=== PATIENT | female | born 1995 | race African-American/Black ===

== ENCOUNTER 2019-08-21 15:20 | Inpatient (IN) ==
[2019-08-21] MEDS ORDERED: MEPERIDINE 50 MG/1 ML VIAL IV PRN (15:30)
[2019-08-21] MEDS ORDERED: BUTORPHANOL 2 MG/ML VIAL IV PRN (15:30)
[2019-08-21] MEDS ORDERED: ONDANSETRON 4 MG/2 ML VIAL IV PRN (15:30)
[2019-08-21] MEDS ORDERED: DINOPROSTONE VAG GEL 10 MG SYRINGE VAG ONE (15:32)
[2019-08-21 15:55] LABS: Basophils % 0.2 % (0.0-0.8); Hematocrit 34.6 VOL% (35.7-47.0); Hemoglobin 11.2 GM/DL (12.0-16.0); Immature Granulocytes % 0.6 %; Immature Granulocytes Absolute 0.06 #; Lymphocytes # 1.7 10*3/uL (1.4-4.0); Lymphocytes % 16.8 % (21.3-54.2); Mean Corpuscular HGB Conc 32.4 GM/DL (32-36); Mean Corpuscular Volume 88.3 FL (87-102); Mean Platelet Volume 12.6 FL (9.6-12.0); Monocytes % 5.3 % (1.7-12.7); Neutrophils % 77.1 % (38.7-73.9); Platelet Count 173 T/CUMM (130-400); Red Blood Count 3.92 MC/CUMM (3.8-5.5); White Blood Count 9.9 T/CUMM (4-12)
[2019-08-21 16:19] LABS: Albumin 2.7 G/DL (3.4-5.0); Bilirubin,Total 0.4 MG/DL (0.2-1.0); Calcium 8.7 MG/DL (8.5-10.1); Osmolality,Calculated 280.3 MOS/KG (273-304); Total Protein 6.1 G/DL (6.4-8.3)
[2019-08-21] MEDS: LACTATED RINGERS 1,000 ML IV SCH (23:06)
[2019-08-22] MEDS ORDERED: OXYTOCIN/LR 20 UNIT/1,000 ML BAG IV SCH (02:00)
[2019-08-22] MEDS ORDERED: DINOPROSTONE VAG GEL 10 MG SYRINGE VAG ONE ×4 (08:31→16:06)
[2019-08-22] MEDS ORDERED: ACETAMINOPHEN 500 MG TABLET PO ONE (11:46)
[2019-08-23] MEDS ORDERED: OXYTOCIN/LR 20 UNIT/1,000 ML BAG IV SCH (02:00)
[2019-08-23] MEDS: LACTATED RINGERS 1,000 ML IV SCH (03:08)
[2019-08-23] MEDS ORDERED: OXYTOCIN 10 UNIT/ML VIAL IM ONE (06:05)
[2019-08-23] MEDS ORDERED: CITRIC ACID/SODIUM CITRATE 30 ML UDCUP PO ONE (06:05)
[2019-08-23] MEDS ORDERED: OXYTOCIN/LR 30 UNIT/1,000 ML BAG IV ONE (06:05)
[2019-08-23] MEDS ORDERED: FAMOTIDINE 20 MG/2 ML VIAL IV ONE (06:05)
[2019-08-23] MEDS ORDERED: miSOPROStoL 200 MCG TABLET ONE (08:00)
[2019-08-23] MEDS ORDERED: ceFAZolin 3,000 MG in SYRINGE 1 EACH IV ONE (08:00)
[2019-08-23] MEDS ORDERED: METHYLERGONOVINE 0.2 MG/1 ML AMP ONE (08:01)
[2019-08-23] MEDS ORDERED: CARBOPROST TROMETHAMINE 250 MCG/ML AMP IM ONE (08:01)
[2019-08-23] MEDS ORDERED: PHENYLEPHRINE 1 MG/10 ML SYRINGE IV ONE (08:27)
[2019-08-23] MEDS ORDERED: BUPIVACAINE 0.25% 50 ML VIAL ONE (08:27)
[2019-08-23] MEDS ORDERED: MORPHINE 10 MG/10 ML VIAL ONE (08:28)
[2019-08-23] MEDS ORDERED: DEXAMETHASONE 4 MG/1 ML VIAL ONE (08:28)
[2019-08-23] MEDS ORDERED: EPINEPHrine 1 MG/ML VIAL ONE (08:28)
[2019-08-23] MEDS ORDERED: BUPIVACAINE SPINAL 0.75% 2 ML AMP SPINAL ONE (08:28)
[2019-08-23 10:57] LABS: Apearance,Urine Slightly Hazy (Clear); Bilirubin,Urine Negative (Negative); Blood, Urine Moderate mg/dL (Negative); Glucose,Urine (UA) Negative (Negative); Ketones,Urine Negative (Negative); Mucus,Urine Occasional /LPF (Occasional); Nitrite,Urine Negative (Negative); Protein,Urine Negative; RBC,Urine 12 /HPF (0-4); Squamous Epithelial Cell,Urine Few /HPF (0-10); Urine Color Yellow (Yellow); Urine Urobilinogen < 2.0 EU/DL (0.2-1.0); WBC,Urine 9 /HPF (0-6)
[2019-08-23 11:36] LABS: Cord Arterial Blood HCO3 26.8 MMOL/L
[2019-08-23 11:39] LABS: Cord Venous Blood HCO3 22.2 MMOL/L; Cord Venous Blood PCO2 42.8 MMHG; Cord Venous Blood PO2 30.7
[2019-08-23] MEDS ORDERED: HYDROmorphone 2 MG/1 ML VIAL IV PRN (11:47)
[2019-08-23] MEDS ORDERED: ACETAMINOPHEN 500 MG TABLET PO SCH (13:00)
[2019-08-23] MEDS ORDERED: KETOROLAC 30 MG/1 ML VIAL IV SCH (13:00)
[2019-08-23] MEDS ORDERED: OXYTOCIN/LR 20 UNIT/1,000 ML BAG IV ONE (14:29)
[2019-08-23] MEDS ORDERED: ACETAMINOPHEN 325 MG TABLET PO PRN (14:29)
[2019-08-23] MEDS ORDERED: SIMETHICONE CHEW 80 MG TABLET PO PRN (14:29)
[2019-08-23] MEDS ORDERED: RHO(D) IMMUNE GLOBULIN 300 MCG SYRINGE IM ONE (14:29)
[2019-08-23] MEDS ORDERED: ONDANSETRON 4 MG/2 ML VIAL IV PRN (14:29)
[2019-08-23] MEDS ORDERED: ceFAZolin 1,000 MG in SYRINGE 1 EACH IV SCH ×2 (14:30→19:00)
[2019-08-23] MEDS ORDERED: LACTATED RINGERS 1,000 ML IV SCH (14:30)
[2019-08-23] MEDS ORDERED: diphenhydrAMINE 50 MG/1 ML VIAL IV PRN (15:00)
[2019-08-23] MEDS: ACETAMINOPHEN 500 MG TABLET PO SCH (18:28)
[2019-08-23] MEDS: ceFAZolin 1,000 MG in SYRINGE 1 EACH IV SCH (18:32)
[2019-08-23] MEDS: KETOROLAC 30 MG/1 ML VIAL IV SCH (18:32)
[2019-08-23] MEDS ORDERED: ACETAMINOPHEN 500 MG TABLET PO PRN (18:50)
[2019-08-23 19:14] LABS: Basophils % 0.3 % (0.0-0.8); Hemoglobin 9.3 GM/DL (12.0-16.0); Immature Granulocytes % 0.6 %; Immature Granulocytes Absolute 0.07 #; Lymphocytes # 1.2 10*3/uL (1.4-4.0); Lymphocytes % 9.9 % (21.3-54.2); Mean Corpuscular Volume 90.9 FL (87-102); Mean Platelet Volume 12.9 FL (9.6-12.0); Monocytes % 6.9 % (1.7-12.7); Neutrophils % 82.3 % (38.7-73.9); Platelet Count 140 T/CUMM (130-400); Red Cell Distribution Width 13.1 % (9.3-17.3); White Blood Count 11.7 T/CUMM (4-12)
[2019-08-23] MEDS: DOCUSATE SODIUM 100 MG CAPSULE PO SCH (22:19)
[2019-08-24] MEDS: KETOROLAC 30 MG/1 ML VIAL IV SCH ×2 (00:42→06:59)
[2019-08-24] MEDS: ACETAMINOPHEN 500 MG TABLET PO SCH ×3 (00:42→12:50)
[2019-08-24] MEDS: ceFAZolin 1,000 MG in SYRINGE 1 EACH IV SCH (03:18)
[2019-08-24 06:04] LABS: Basophils % 0.3 % (0.0-0.8); Eosinophils % 0.3 % (0.00-10.9); Hemoglobin 8.9 GM/DL (12.0-16.0); Immature Granulocytes % 0.6 %; Immature Granulocytes Absolute 0.07 #; Lymphocytes % 16.7 % (21.3-54.2); Mean Corpuscular HGB Conc 31.8 GM/DL (32-36); Mean Corpuscular Volume 91.5 FL (87-102); Mean Platelet Volume 12.6 FL (9.6-12.0); Monocytes % 9.9 % (1.7-12.7); Neutrophils % 72.2 % (38.7-73.9); Platelet Count 148 T/CUMM (130-400); Red Blood Count 3.06 MC/CUMM (3.8-5.5); Red Cell Distribution Width 13.2 % (9.3-17.3); White Blood Count 11.8 T/CUMM (4-12)
[2019-08-24] MEDS: DOCUSATE SODIUM 100 MG CAPSULE PO SCH ×2 (09:43→20:59)
[2019-08-24] MEDS: FERROUS SULFATE 325 MG TABLET PO SCH ×2 (09:44→20:59)
[2019-08-24] MEDS: MAGNESIUM HYDROXIDE SUSP 30 ML UDCUP PO PRN ×2 (09:44→21:03)
[2019-08-24] MEDS: MULTIVITAMIN (PRENATAL) TABLET PO SCH (09:44)
[2019-08-24] MEDS ORDERED: oxyCODONE/ACETAMINOPHEN 5-325 MG TABLET ONE (14:29)
[2019-08-24] MEDS: oxyCODONE/ACETAMINOPHEN 5-325 MG TABLET PO PRN ×2 (14:50→20:59)
[2019-08-24] MEDS ORDERED: METOCLOPRAMIDE 10 MG TABLET PO PRN (15:23)
[2019-08-25] MEDS: IBUPROFEN 800 MG TABLET PO PRN ×2 (01:16→13:46)
[2019-08-25] MEDS: oxyCODONE/ACETAMINOPHEN 5-325 MG TABLET PO PRN ×2 (04:20→23:45)
[2019-08-25] MEDS ORDERED: FUROSEMIDE 40 MG TABLET PO ONE ×3 (08:05→20:00)
[2019-08-25] MEDS: MULTIVITAMIN (PRENATAL) TABLET PO SCH (09:04)
[2019-08-25] MEDS: DOCUSATE SODIUM 100 MG CAPSULE PO SCH ×2 (09:04→20:35)
[2019-08-25] MEDS: FERROUS SULFATE 325 MG TABLET PO SCH ×2 (09:04→20:34)
[2019-08-25] MEDS: MAGNESIUM HYDROXIDE SUSP 30 ML UDCUP PO PRN (20:46)
[2019-08-26] MEDS: IBUPROFEN 800 MG TABLET PO PRN (01:03)
[2019-08-26] MEDS: MULTIVITAMIN (PRENATAL) TABLET PO SCH (09:54)
[2019-08-26] MEDS: MAGNESIUM HYDROXIDE SUSP 30 ML UDCUP PO PRN (09:55)
[2019-08-26] MEDS: FERROUS SULFATE 325 MG TABLET PO SCH (09:55)
[2019-08-26] MEDS: DOCUSATE SODIUM 100 MG CAPSULE PO SCH (09:56)
[2019-08-26] MEDS ORDERED: MAGNESIUM CITRATE 300 ML BOTTLE PO ONE (10:49)
[2019-08-26 20:51] VITALS: BP 136/74
== END 2019-08-26 18:50 | disposition home or self-care (01) | DRG 788 ==
LOC: N.LDOUT 15:20 → N.LD 15:22 → N.OB 08-23 14:34
PROVIDERS: ADMIT Obstetrics & Gynecology; ATTEND Obstetrics & Gynecology
PROC: LDCSECT (ICD-10-PCS; 2019-08-23 10:00)

== ENCOUNTER 2020-07-01 16:40 | Observation (INO) ==
[2020-07-01] MEDS ORDERED: SODIUM CHLORIDE 0.9% 500 ML IV STA (20:56)
[2020-07-01] MEDS ORDERED: PANTOPRAZOLE 40 MG VIAL IV STA (20:56)
[2020-07-01] MEDS ORDERED: ONDANSETRON 4 MG/2 ML VIAL IV STA (20:56)
[2020-07-01] MEDS ORDERED: ALUM/MAG/SIMETH/LIDO VISC 1:1 30 ML BOTTLE PO STA (20:56)
[2020-07-01 21:26] LABS: Basophils # 0.1 10*3/uL (0.0-0.2); Basophils % 0.7 % (0.0-0.8); Eosinophils # 0.1 10*3/uL (0.0-0.87); Eosinophils % 0.6 % (0.00-10.9); Hematocrit 42.9 VOL% (35.7-47.0); Hemoglobin 13.7 GM/DL (12.0-16.0); Immature Granulocytes % 0.3 %; Immature Granulocytes Absolute 0.03 #; Lymphocytes # 1.4 10*3/uL (1.4-4.0); Lymphocytes % 15.7 % (21.3-54.2); Mean Corpuscular HGB Conc 31.9 GM/DL (32-36); Mean Corpuscular Volume 88.3 FL (87-102); Mean Platelet Volume 11.5 FL (9.6-12.0); Neutrophils % 77.7 % (38.7-73.9); Platelet Count 295 T/CUMM (130-400); Red Blood Count 4.86 MC/CUMM (3.8-5.5); Red Cell Distribution Width 14.3 % (9.3-17.3); White Blood Count 8.7 T/CUMM (4-12)
[2020-07-01 21:33] LABS: Apearance,Urine CLEAR (Clear); Bilirubin,Urine Negative (Negative); Blood, Urine Negative (Negative); Glucose,Urine (UA) Negative (Negative); Ketones,Urine Negative (Negative); Mucus,Urine Occasional /LPF (Occasional); Nitrite,Urine Negative (Negative); Protein,Urine Negative; RBC,Urine 1 /HPF (0-4); Squamous Epithelial Cell,Urine Occasional /HPF (0-10); Urine Color Amber (Yellow); Urine Specific Gravity 1.024 (1.001-1.035); Urine Urobilinogen < 2.0 EU/DL (0.2-1.0); WBC,Urine 3 /HPF (0-6)
[2020-07-01 21:48] LABS: Calcium 9.4 MG/DL (8.5-10.1); Osmolality,Calculated 275.4 MOS/KG (273-304); Total Protein 7.8 G/DL (6.4-8.3)
[2020-07-01] MEDS ORDERED: HYDROmorphone 2 MG/1 ML VIAL IV STA (21:55)
[2020-07-01] MEDS ORDERED: ACETAMINOPHEN 325 MG TABLET PO PRN (23:58)
[2020-07-01] MEDS ORDERED: ONDANSETRON 4 MG/2 ML VIAL IV PRN (23:58)
[2020-07-01] MEDS ORDERED: HYDROmorphone 2 MG/1 ML VIAL IV PRN (23:58)
[2020-07-02] MEDS: SODIUM CHLORIDE 0.9% 1,000 ML IV SCH ×3 (01:30→17:13)
[2020-07-02] MEDS: PIPERACILLIN/TAZOBACTAM 3,375 MG in SODIUM CHLORIDE 0.9% 100 ML IV SCH ×2 (01:30→10:21)
[2020-07-02 04:18] LABS: Basophils % 0.5 % (0.0-0.8); Eosinophils # 0.1 10*3/uL (0.0-0.87); Eosinophils % 1.3 % (0.00-10.9); Hematocrit 37.1 VOL% (35.7-47.0); Hemoglobin 11.8 GM/DL (12.0-16.0); Immature Granulocytes % 0.3 %; Immature Granulocytes Absolute 0.02 #; Lymphocytes % 31.8 % (21.3-54.2); Mean Corpuscular HGB Conc 31.8 GM/DL (32-36); Mean Corpuscular Volume 87.7 FL (87-102); Mean Platelet Volume 11.5 FL (9.6-12.0); Neutrophils % 58.1 % (38.7-73.9); Platelet Count 218 T/CUMM (130-400); Red Blood Count 4.23 MC/CUMM (3.8-5.5); Red Cell Distribution Width 14.1 % (9.3-17.3); White Blood Count 6.2 T/CUMM (4-12)
[2020-07-02 04:39] LABS: Albumin 3.2 G/DL (3.4-5.0); Calcium 8.8 MG/DL (8.5-10.1); Osmolality,Calculated 278.3 MOS/KG (273-304); Total Protein 6.2 G/DL (6.4-8.3)
[2020-07-02] MEDS ORDERED: PANTOPRAZOLE 40 MG VIAL IV SCH (09:00)
[2020-07-02] MEDS ORDERED: ETHINYL ESTRADIOL/NORGESTREL 0.03-0.3 MG TABLET PO SCH (09:00)
[2020-07-02] MEDS ORDERED: PANTOPRAZOLE 20 MG TABLET PO SCH (09:00)
[2020-07-02] MEDS ORDERED: LIDOCAINE 1%/EPI INJ 20 ML VIAL ONE (12:07)
[2020-07-02] MEDS ORDERED: TISSUE ADHESIVE 1 EACH APPLICATOR TOP ONE (13:52)
[2020-07-02] MEDS ORDERED: LIDOCAINE 2% 5 ML VIAL ONE (14:11)
[2020-07-02] MEDS ORDERED: SEVOFLURANE 1 UNIT/15 MINUTE INH ONE (14:11)
[2020-07-02] MEDS ORDERED: propofoL 200 MG/20 ML VIAL IV ONE (14:11)
[2020-07-02] MEDS ORDERED: ePHEDrine 50 MG/ML VIAL ONE (14:12)
[2020-07-02] MEDS ORDERED: MIDAZOLAM 2 MG/2 ML VIAL ONE (14:12)
[2020-07-02] MEDS ORDERED: ONDANSETRON 4 MG/2 ML VIAL ONE (14:12)
[2020-07-02] MEDS ORDERED: fentaNYL 100 MCG/2 ML VIAL ONE (14:12)
[2020-07-02] MEDS ORDERED: DEXAMETHASONE 4 MG/1 ML VIAL ONE (14:12)
[2020-07-02] MEDS ORDERED: GLYCOPYRROLATE 0.4 MG/2 ML VIAL ONE (14:13)
[2020-07-02] MEDS ORDERED: ROCURONIUM 100 MG/10 ML VIAL IV ONE (14:13)
[2020-07-02] MEDS ORDERED: NEOSTIGMINE 10 MG/10 ML VIAL ONE (14:13)
[2020-07-02] MEDS ORDERED: LACTATED RINGERS 1,000 ML IV ONE (14:13)
[2020-07-02] MEDS ORDERED: KETOROLAC 30 MG/1 ML VIAL ONE (14:13)
[2020-07-02 16:02] VITALS: BP 129/77
[2020-07-02] MEDS ORDERED: ENOXAPARIN 40 MG/0.4 ML SYRINGE SUBCUT SCH (17:16)
== END 2020-07-02 18:15 | disposition home or self-care (01) ==
LOC: N.ED 16:40 → N.EDINP 16:40 → N.5E 07-02 07:24
PROVIDERS: ADMIT Surgery; ATTEND Surgery
PROC: LAPCHOL (2020-07-02 12:51)

== ENCOUNTER 2022-09-05 07:00 | Inpatient (IN) ==
[2022-09-05] MEDS ORDERED: TRANEXAMIC ACID 1,000 MG in SODIUM CHLORIDE 0.9% 100 ML IV PRN (07:12)
[2022-09-05] MEDS ORDERED: METHYLERGONOVINE 0.2 MG/1 ML AMP IM PRN (07:12)
[2022-09-05] MEDS ORDERED: ceFAZolin 2,000 MG/50 ML DUPLEX IV ONE (07:12)
[2022-09-05] MEDS ORDERED: CARBOPROST TROMETHAMINE 250 MCG/ML AMP IM PRN (07:12)
[2022-09-05] MEDS ORDERED: CITRIC ACID/SODIUM CITRATE 30 ML UDCUP PO ONE (07:12)
[2022-09-05] MEDS ORDERED: OXYTOCIN/LR 20 UNIT/1,000 ML BAG IV ONE ×2 (07:12→10:31)
[2022-09-05] MEDS ORDERED: FAMOTIDINE 20 MG/2 ML VIAL IV ONE (07:12)
[2022-09-05] MEDS ORDERED: miSOPROStoL 200 MCG TABLET RECTAL PRN (07:12)
[2022-09-05] MEDS ORDERED: OXYTOCIN/LR 30 UNIT/1,000 ML BAG IV ONE (07:14)
[2022-09-05] MEDS ORDERED: OXYTOCIN 10 UNIT/ML VIAL IM ONE ×2 (07:14→07:21)
[2022-09-05] MEDS ORDERED: LACTATED RINGERS 1,000 ML IV SCH ×2 (07:30→11:00)
[2022-09-05] MEDS ORDERED: ONDANSETRON 4 MG/2 ML VIAL ONE (07:56)
[2022-09-05] MEDS ORDERED: buprenorphine HCL 0.3 MG/ML VIAL ONE (07:56)
[2022-09-05] MEDS ORDERED: PHENYLEPHRINE 1 MG/10 ML SYRINGE IV ONE ×3 (07:59→10:18)
[2022-09-05 08:04] LABS: Basophils # 0.1 10*3/uL (0.0-0.2); Basophils % 0.5 % (0.0-0.8); Eosinophils % 0.2 % (0.00-10.9); Hematocrit 34.2 VOL% (35.7-47.0); Immature Granulocytes % 0.7 %; Immature Granulocytes Absolute 0.07 #; Lymphocytes % 19.2 % (21.3-54.2); Mean Corpuscular HGB Conc 32.2 GM/DL (32-36); Mean Corpuscular Volume 88.8 FL (87-102); Mean Platelet Volume 12.9 FL (9.6-12.0); Monocytes # 0.8 10*3/uL (0.11-0.8); Monocytes % 7.2 % (1.7-12.7); Neutrophils % 72.2 % (38.7-73.9); Platelet Count 160 T/CUMM (130-400); Red Blood Count 3.85 MC/CUMM (3.8-5.5); Red Cell Distribution Width 13.3 % (9.3-17.3); White Blood Count 10.6 T/CUMM (4-12)
[2022-09-05 08:32] LABS: Albumin 2.6 G/DL (3.4-5.0); Bilirubin,Total 0.7 MG/DL (0.20-1.00); Calcium 8.9 MG/DL (8.5-10.1); Osmolality,Calculated 277.4 MOS/KG (273-304); Potassium 3.5 MMOL/L (3.5-5.1); Total Protein 6.2 G/DL (6.4-8.2)
[2022-09-05] MEDS ORDERED: ePHEDrine 50 MG/ML VIAL ONE (09:35)
[2022-09-05] MEDS ORDERED: ACETAMINOPHEN INJ 1,000 MG/100 ML VIAL IV ONE (09:37)
[2022-09-05] MEDS ORDERED: KETOROLAC 30 MG/1 ML VIAL ONE (09:37)
[2022-09-05] MEDS ORDERED: LACTATED RINGERS 1,000 ML IV ONE (09:54)
[2022-09-05] MEDS ORDERED: DEXAMETHASONE 4 MG/1 ML VIAL ONE (10:01)
[2022-09-05 10:17] LABS: Cord Arterial Blood HCO3 19.9 MMOL/L
[2022-09-05 10:20] LABS: Cord Venous Blood PCO2 50.8 MMHG; Cord Venous Blood PO2 31.6
[2022-09-05 10:21] LABS: Bacteria,Urine Occasional /HPF (Few); Bilirubin,Urine Negative (Negative); Blood, Urine Negative (Negative); Glucose,Urine (UA) Negative (Negative); Ketones,Urine 15 mg/dL (Negative); Mucus,Urine Occasional /LPF (Occasional); Nitrite,Urine Negative (Negative); Protein,Urine Negative (Negative); RBC,Urine 1 /HPF (0-4); Squamous Epithelial Cell,Urine Occasional /HPF (0-10); Urine Appearance Clear (Clear); Urine Color Yellow (Yellow); Urine Urobilinogen 0.2 eU/dL (<2.0)
[2022-09-05] MEDS ORDERED: RHO(D) IMMUNE GLOBULIN 300 MCG SYRINGE IM ONE (10:31)
[2022-09-05] MEDS ORDERED: ACETAMINOPHEN 325 MG TABLET PO PRN (10:31)
[2022-09-05] MEDS ORDERED: MAGNESIUM HYDROXIDE SUSP 30 ML UDCUP PO PRN (10:31)
[2022-09-05] MEDS ORDERED: ONDANSETRON 4 MG/2 ML VIAL IV PRN (10:31)
[2022-09-05] MEDS ORDERED: SIMETHICONE CHEW 80 MG TABLET PO PRN (10:31)
[2022-09-05] MEDS: KETOROLAC 30 MG/1 ML VIAL IV SCH ×2 (15:56→21:32)
[2022-09-05] MEDS: ACETAMINOPHEN 500 MG TABLET PO SCH ×2 (15:57→21:35)
[2022-09-05 16:29] LABS: Basophils % 0.3 % (0.0-0.8); Eosinophils % 0.1 % (0.00-10.9); Hematocrit 31.3 VOL% (35.7-47.0); Hemoglobin 9.9 GM/DL (12.0-16.0); Immature Granulocytes % 1.5 %; Immature Granulocytes Absolute 0.23 #; Lymphocytes # 0.8 10*3/uL (1.4-4.0); Lymphocytes % 5.3 % (21.3-54.2); Mean Corpuscular HGB Conc 31.6 GM/DL (32-36); Mean Corpuscular Volume 89.4 FL (87-102); Mean Platelet Volume 13.1 FL (9.6-12.0); Monocytes # 0.6 10*3/uL (0.11-0.8); Monocytes % 3.5 % (1.7-12.7); Neutrophils % 89.3 % (38.7-73.9); Platelet Count 152 T/CUMM (130-400); Red Cell Distribution Width 13.3 % (9.3-17.3); White Blood Count 15.5 T/CUMM (4-12)
[2022-09-05] MEDS: DOCUSATE SODIUM 100 MG CAPSULE PO SCH (21:34)
[2022-09-06] MEDS: KETOROLAC 30 MG/1 ML VIAL IV SCH (04:22)
[2022-09-06] MEDS: ACETAMINOPHEN 500 MG TABLET PO SCH (04:22)
[2022-09-06 05:28] LABS: Basophils % 0.3 % (0.0-0.8); Eosinophils % 0.2 % (0.00-10.9); Hematocrit 27.2 VOL% (35.7-47.0); Hemoglobin 8.4 GM/DL (12.0-16.0); Immature Granulocytes % 0.6 %; Immature Granulocytes Absolute 0.06 #; Lymphocytes # 1.7 10*3/uL (1.4-4.0); Lymphocytes % 16.5 % (21.3-54.2); Mean Corpuscular HGB Conc 30.9 GM/DL (32-36); Mean Corpuscular Volume 89.8 FL (87-102); Mean Platelet Volume 13.5 FL (9.6-12.0); Monocytes % 9.6 % (1.7-12.7); Neutrophils % 72.8 % (38.7-73.9); Platelet Count 145 T/CUMM (130-400); Red Blood Count 3.03 MC/CUMM (3.8-5.5); Red Cell Distribution Width 13.2 % (9.3-17.3); White Blood Count 10.1 T/CUMM (4-12)
[2022-09-06] MEDS: FERROUS SULFATE 325 MG TABLET PO SCH ×2 (08:39→20:33)
[2022-09-06] MEDS: METOCLOPRAMIDE 10 MG TABLET PO SCH (08:39)
[2022-09-06] MEDS: MULTIVITAMIN (PRENATAL) TABLET PO SCH (08:39)
[2022-09-06] MEDS: DOCUSATE SODIUM 100 MG CAPSULE PO SCH ×2 (08:39→20:33)
[2022-09-06] MEDS: IBUPROFEN 800 MG TABLET PO PRN (13:55)
[2022-09-07] MEDS: METOCLOPRAMIDE 10 MG TABLET PO SCH ×2 (01:17→10:07)
[2022-09-07] MEDS: IBUPROFEN 800 MG TABLET PO PRN ×2 (01:20→10:50)
[2022-09-07 07:25] VITALS: BP 102/53
[2022-09-07] MEDS: DOCUSATE SODIUM 100 MG CAPSULE PO SCH (10:07)
[2022-09-07] MEDS: MULTIVITAMIN (PRENATAL) TABLET PO SCH (10:07)
[2022-09-07] MEDS: FERROUS SULFATE 325 MG TABLET PO SCH (10:07)
[2022-09-07] MEDS ORDERED: MEASLES/MUMPS/RUBELLA VACCINE 0.5 ML VIAL SUBCUT ONE (10:14)
[2022-09-07] MEDS ORDERED: DIPH/TET/ACEL PERT BOOSTER VACCINE 0.5 ML VIAL IM ONE (10:14)
[2022-09-07] MEDS ORDERED: INFLUENZA VIRUS VACCINE 0.5 ML SYRINGE IM ONE (10:14)
== END 2022-09-07 13:00 | disposition home or self-care (01) | DRG 540 ==
LOC: N.LD 07:00 → N.OB 13:57
PROVIDERS: ADMIT Obstetrics & Gynecology; ATTEND Obstetrics & Gynecology
PROC: LDCSECT (ICD-10-PCS; 2022-09-05 08:30)